=== PATIENT | female | born 1960 | race African-American/Black ===

== ENCOUNTER 2025-04-08 08:45 | Observation (INO) | payer MEDICARE, MEDICAID ==
[2025-04-08 09:33] LABS: Hematocrit 40.6 % (36.0-47.0); Hemoglobin 12.4 g/dL (12.0-16.0); Mean Corpuscular Hemoglobin 25.8 pg (27.0-31.0); Mean Corpuscular Volume 84.4 fL (78.0-98.0); Platelet Count 210 10x3/uL (130-400); Red Blood Cell (RBC) Count 4.81 mill/uL (4.20-5.40); White Blood Cell (WBC) Count 6.05 10x3/uL (4.8-10.8)
[2025-04-08 09:46] LABS: ALT (SGPT) 10 U/L (Less than 34); AST (SGOT) 19 U/L (11-34); Albumin 3.6 g/dL (3.1-4.5); Alkaline Phosphatase 83 U/L (40-110); Anion Gap 11 mmol/L (10-20); BUN (Urea Nitrogen) 17 mg/dL (9.8-20.1); Bilirubin, Total 0.6 mg/dL (0.3-1.2); Calc. Creatinine Clearance 0 mL/min (70-130); Calcium 9.3 mg/dL (7.8-10.44); Carbon Dioxide 25 mmol/L (23-31); Chloride 110 mmol/L (98-107); Globulin 3.4 g/dL (2.4-3.5); Glucose 95 mg/dL (80-115); Potassium 4.2 mmol/L (3.5-5.1); Sodium 142 mmol/L (136-145)
[2025-04-08 10:04] LABS: Platelet Adequacy Comment Platelets Normal; Polychromasia SLIGHT = 2-3 cells HPF (0-2)
[2025-04-08 10:07] LABS: #Basophils 0.04 10x3/uL (0.0-0.2); #Eosinophils 0.17 10x3/uL (0.0-0.7); #Monocytes 0.40 10x3/uL (0.11-0.59); #Neutrophils 2.93 10x3/uL (1.40-6.50); %Basophils 0.7 % (0.0-1.0); %Eosinophils 2.8 % (0.0-10.0); %Lymphocytes 41.3 % (21.0-51.0); %Monocytes 6.6 % (0.0-10.0); %Neutrophils 48.4 % (42.0-75.0)
[2025-04-08] MEDS ORDERED: Furosemide 20 MG (2 mL) VIAL ONE (11:17)
[2025-04-08] MEDS ORDERED: Aspirin Chewable 81 MG TAB ONE (11:18)
[2025-04-08 13:34] VITALS: BMI 32.4
[2025-04-08] MEDS: Nitroglycerin 2% Ointment 1 INCH/1 GM Packet TOP SCH (15:16)
[2025-04-08] MEDS: Pantoprazole 40 MG DR.TAB PO SCH (15:16)
[2025-04-08] MEDS: Enoxaparin 80 MG (0.8 mL) SYRINGE SC SCH (15:47)
[2025-04-08] MEDS: FLU (Fluarix Triv) 25-26 (6MOS UP)/PF 45 MCG/0.5 ML Syringe IM ONE (16:10)
[2025-04-08] MEDS: Lidocaine 2% Viscous Solution 20 ML, Aluminum & Magnesium Hydroxide 30 ML, Donnatal Eli... SSW SCH (16:12)
[2025-04-08] MEDS: Furosemide 40 MG (4 mL) VIAL SLOW IVP SCH (18:39)
[2025-04-08] MEDS: Spironolactone 25 MG TAB PO SCH (21:22)
[2025-04-08] MEDS: Carvedilol 6.25 MG TAB PO SCH (21:22)
[2025-04-08] MEDS ORDERED: Enoxaparin 80 MG (0.8 mL) SYRINGE SC SCH (23:00)
[2025-04-09] MEDS: Acetaminophen 500 MG TAB PO PRN (00:12)
[2025-04-09 05:07] LABS: #Basophils 0.03 10x3/uL (0.0-0.2); #Eosinophils 0.11 10x3/uL (0.0-0.7); #Monocytes 0.40 10x3/uL (0.11-0.59); #Neutrophils 3.81 10x3/uL (1.40-6.50); %Basophils 0.5 % (0.0-1.0); %Eosinophils 1.8 % (0.0-10.0); %Lymphocytes 28.2 % (21.0-51.0); %Monocytes 6.6 % (0.0-10.0); %Neutrophils 62.7 % (42.0-75.0); Hematocrit 43.3 % (36.0-47.0); Hemoglobin 13.4 g/dL (12.0-16.0); Mean Corpuscular Hemoglobin 25.5 pg (27.0-31.0); Mean Corpuscular Volume 82.5 fL (78.0-98.0); Platelet Count 230 10x3/uL (130-400); Red Blood Cell (RBC) Count 5.25 mill/uL (4.20-5.40); White Blood Cell (WBC) Count 6.07 10x3/uL (4.8-10.8)
[2025-04-09 05:23] LABS: Anion Gap 18 mmol/L (10-20); BUN (Urea Nitrogen) 24 mg/dL (9.8-20.1); Calc. Creatinine Clearance 62 mL/min (70-130); Calcium 10.0 mg/dL (7.8-10.44); Carbon Dioxide 23 mmol/L (23-31); Chloride 102 mmol/L (98-107); Glucose 127 mg/dL (80-115); Potassium 3.6 mmol/L (3.5-5.1); Sodium 139 mmol/L (136-145)
[2025-04-09] MEDS: Furosemide 40 MG (4 mL) VIAL SLOW IVP SCH (06:08)
[2025-04-09] MEDS ORDERED: Electrolyte Replacement Protocol 1 EACH FS SCH (08:15)
[2025-04-09] MEDS ORDERED: Magnesium 2 GM/50 ML(in water) 2 GM in Premix 1 BAG IVPB PRN (08:30)
[2025-04-09] MEDS ORDERED: PHOS-NAK 1 PKT PACK PO PRN (08:30)
[2025-04-09] MEDS ORDERED: Potassium Chloride 20 MEQ in Premix 1 BAG IVPB PRN (08:30)
[2025-04-09] MEDS: Digoxin 0.125 MG TAB PO SCH (08:40)
[2025-04-09] MEDS: Pantoprazole 40 MG DR.TAB PO SCH (08:41)
[2025-04-09] MEDS: Aspirin 81 mg Enteric Coated Tablet PO SCH (08:41)
[2025-04-09] MEDS: Enoxaparin 40 MG (0.4 mL) SYRINGE SC SCH (08:42)
[2025-04-09] MEDS ORDERED: Aspirin Chewable 81 MG TAB PO SCH (09:00)
[2025-04-09] MEDS ORDERED: Enoxaparin 80 MG (0.8 mL) SYRINGE SC SCH (09:00)
[2025-04-09 09:25] LABS: Ferritin 57.46 ng/mL (10-291); Thyroid Stimulating Hormone 1.1982 uIU/mL (0.35-4.94)
[2025-04-09 11:12] LABS: Iron 94 ug/dL (50-170); Iron Binding Capacity, Total 461 mcg/dL (265-497)
[2025-04-09 12:06] VITALS: TEMP 98
[2025-04-09 12:24] VITALS: BP 113/67
== END 2025-04-09 13:42 | disposition home or self-care (01) ==
LOC: ERS 08:45 → OBS 11:36
PROVIDERS: ADMIT Hospitalist; ATTEND Family Medicine
PROC: B24BZZZ Ultrasonography of Heart with Aorta (ICD-10-PCS; principal; 2025-04-08)
DX: R07.9 Chest pain, unspecified (principal); R06.02 Shortness of breath; I08.1 Rheumatic disorders of both mitral and tricuspid valves; I11.0 Hypertensive heart disease with heart failure; I50.9 Heart failure, unspecified; I25.10 Atherosclerotic heart disease of native coronary artery without angina pectoris; F41.9 Anxiety disorder, unspecified; F32.A Depression, unspecified; Z95.5 Presence of coronary angioplasty implant and graft; Z87.891 Personal history of nicotine dependence; Z95.810 Presence of automatic (implantable) cardiac defibrillator; Z98.51 Tubal ligation status; Z90.710 Acquired absence of both cervix and uterus; Z98.890 Other specified postprocedural states; Z88.0 Allergy status to penicillin; Z88.8 Allergy status to other drugs, medicaments and biological substances; Z79.82 Long term (current) use of aspirin; Z79.02 Long term (current) use of antithrombotics/antiplatelets; Z79.899 Other long term (current) drug therapy
CPT/HCPCS: 71046; 80053; 83880; 84484 ×2; 85025; 87428; 90656; 93005; 93306; J1650; J1940 ×2; 36415; 80048; 82728; 83540; 83550; 84443; 93798; 96374